=== PATIENT | male | born 1955 | race Caucasian/White ===

== ENCOUNTER → 2020-08-13 15:01 | Outpatient (CLI) | payer OTHER, SELFPAY ==
[2020-08-13] MEDS: COVID-19 VACC #1, MRNA(MOD) 100 MCG/0.5 ML VIAL IM (15:06)
== END ==
PROVIDERS: Visit Provider Internal Medicine
DX: Z23 Encounter for immunization (principal)
CPT/HCPCS: 0011A; 91301

== ENCOUNTER → 2020-09-10 15:13 | Outpatient (CLI) | payer OTHER, SELFPAY ==
[2020-09-10] MEDS: COVID-19 VACC #2, MRNA(MOD) 100 MCG/0.5 ML VIAL IM (15:20)
== END ==
PROVIDERS: Visit Provider Internal Medicine
DX: Z23 Encounter for immunization (principal)
CPT/HCPCS: 0012A; 91301

== ENCOUNTER 2023-07-27 09:08 | Day surgery (SDC) | payer OTHER, MEDICARE, SELFPAY ==
--- NOTE | 2023-07-27 | PATH_ITS ---
[facility] Accession Number: [id number] No. of containers..01 Tissue . 01 Material submitted: . rectum - RECTAL POLYP . 01 Diagnosis: Rectum, Polyp: Hyperplastic polyp. MRV 07/29/2023 1511 Local . 01 Electronically signed: . Jayshree Mello MD, Pathologist NPI- [id number] . 01 Gross description: . RECTAL POLYP: Received in formalin are 2 fragment(s) of pal, soft tissue measuring 0.1 x 0.1 x 0.1 cm to 0.3 x 0.3 x 0.2 cm submitted entirely in 1 cassette(s) /MARBELLA 07/28/2023 2245 Local . 01 Pathologist provided ICD-10: K62.1 . 01 CPT . 499980 Specimen Comment: A courtesy copy of this report has been sent to [phone] Performed at: 01 [facility] [address] [place] [address], [place], [place] [id number] MD Louis Mazariegos MD Phone: [phone]
[2023-07-27] MEDS: LACTATED RINGERS 1,000 ML 42 ML IV (09:24)
[2023-07-27 09:31] VITALS: BP 142/80; PULSE 73; RESP 18; TEMP 36.4; O2SAT 99; BMI 24.3
--- NOTE | 2023-07-27 09:48 | SUR.PREOP ---
Dizziness: Patient verbalizes feeling dizzy after IV initiated. bp 85/55. HR 75. saO2 100%. Place patient with head down and IV fluids given. bp now 101/63 HR 75.
--- NOTE | 2023-07-27 10:13 | P.HP_ITS ---
History of Present Illness History of Present Illness Date Patient Seen: 07/27/23 Chief complaint: Colonoscopy Narrative: 67-year-old man personal history of colonic polyps here for screening colonoscopy. No family history of intestinal malignancy. No abdominal concerns today PFSH Surgical History (Updated 11/16/17 @ 05:00 by SANDIP Carr) Status post colonoscopy Status post tonsillectomy and adenoidectomy Family History (Updated 08/02/14 @ 00:00 by Conversion Provider) Father Age: 90 Hyperlipidemia Mother Alzheimer disease Social History Smoking Status: Never smoker alcohol intake: never Meds Home Medications and Allergies Home Medications Medication Instructions Recorded Confirmed Type Fish Oil (#FISH OIL CONCENTRATE) 1 sgl PO ##0 04/11/11 05/20/18 History CA PANTOTHENATE/FOLIC ACID/VIT 1 tab PO EVERY OTHER DAY ##0 05/26/11 05/20/18 History (MULTIVITAMIN) atorvastatin 20 mg tablet (Lipitor) 30 mg (1.5 x 20 mg) PO HS #135 tabs 03/11/17 07/27/23 Rx Allergies Allergy/AdvReac Type Severity Reaction Status Date / Time shellfish derived Allergy Mild Vomiting Verified 07/27/23 09:28 [SHELLFISH DERIVED] STRAW MUSHROOMS Allergy Mild Uncoded 07/27/23 09:27 Exam Vital Signs (past 8 hours): - 07/27/23 09:31 Temperature 97.5 F L Pulse Rate 73 Respiratory Rate 18 Blood Pressure 142/80 H Pulse Oximetry 99 Oxygen Delivery Method Room Air Oxygen Delivery Method Room Air Narrative Exam Narrative: General adult man alert oriented no acute distress Chest nonlabored respiration Extremities warm well perfused Assessment & Plan Assessment & Plan narrative: The patient requires colorectal screening and colonoscopy is recommended. T echnical details were discussed. Risks, benefits, alternatives explained. Risks including but not limited to myocardial infarction, aspiration, bleeding, pain, missed lesion, incomplete examination, need for further radiographic studies, colonic perforation, and need for major abdominal surgery were discussed. All questions were answered to their satisfaction, and they are in agreement with this plan.
[2023-07-27 10:35] VITALS: BP 93/59; PULSE 73; RESP 18; TEMP 36.1; O2SAT 96
--- NOTE | 2023-07-27 10:36 | P.OP.COLON_ITS ---
Operative Date/Time/Diagnoses Date of procedure: 07/27/23 Time of procedure: 10:36 Pre-op diagnosis: Personal history of colonic polyps Procedure & Clinicians Study performed: Colonoscopy and polypectomy Same procedure as scheduled: Yes Indications: Personal history of colonic polyps Colorectal screening Surgeon: Thony Piedra Procedure Notes Procedure in detail: The history and physical was performed/updated and the patient is ASA class is 2. The procedure was discussed in detail with the patient. Potential risks complications including infection, bleeding, missed diagnosis, perforation, need for surgery, and were explained. Their questions were answered and informed consent was obtained. Patient was brought to the procedure room and placed standard monitoring equipment. The patient's vital signs were monitored continuously throughout the entire procedure. Prior to starting time-out was performed. The patient was placed in the left lateral recumbent position. Procedural sedation was administered by anesthesia. Examination began with a thorough inspection of the perianal area there was no evidence of fissures, fistulae, external hemorrhoids or cutaneous malignancy. The colonoscopy scope was then placed into the anal canal and was advanced to the cecum, which was identified by the ileocecal valve, the appendiceal orifice and the confluence of the taenia. The scope was then slowly withdrawn examining colon thoroughly in all directions, irrigating it of any residual stool. The scope was retroflexed within the rectum The patient tolerated the procedure well. They will be discharged once criteria are met. The prep was of good/excellent quality. The withdrawl time was 7 minutes. FINDINGS * Rectum-5 mm polyp removed with biopsy forceps in entirety Specimen(s): other (Rectal polyp) Impression: Colonic polyp x1 Post-procedure Plan for aftercare: Follow up dependent on pathology findings likely 5 years. Disposition: same day surgery
[2023-07-27 10:40] VITALS: BP 97/60; PULSE 66; RESP 12; O2SAT 98
[2023-07-27 10:45] VITALS: BP 100/54; PULSE 77; RESP 20; TEMP 36.6; O2SAT 100
== END 2023-07-27 10:57 | disposition home or self-care (01) ==
PROVIDERS: PCP Family Medicine; Referring Provider Surgery; Visit Provider Surgery
PROC: 0DJD8ZZ Inspection of Lower Intestinal Tract, Via Natural or Artificial Opening Endoscopic (ICD-10-PCS; CPT 45378; principal; 2023-07-27 10:15)
DX: Z12.11 Encounter for screening for malignant neoplasm of colon (principal); Z86.010 Personal history of colon polyps; K62.1 Rectal polyp
CPT/HCPCS: 45380; J2704

== ENCOUNTER → 2025-02-23 12:14 | Outpatient (CLI) | payer OTHER, MEDICARE, SELFPAY ==
--- NOTE | 2025-02-23 12:17 | DI.RAD.S_ITS ---
PROCEDURE: XR CHEST 2V INDICATIONS: eval for CAP TECHNIQUE: 2 views of the chest were acquired. COMPARISON: None. FINDINGS: Surgical changes and devices: None. Lungs and pleura: Mild streaky bibasilar opacities more pronounced on the left. No dense consolidation.. No pleural effusions or pneumothorax. Mediastinum: Mediastinal contours are normal. Heart size is normal. Bones and chest wall: No suspicious bony abnormalities. Healed fracture deformities of the left lateral chest wall. Soft tissues appear unremarkable. IMPRESSION: No acute cardiopulmonary abnormalities or focal consolidation. Dictated by: Eduardo Wynne M.D. on 02/23/2025 at 13:40 Approved by: Eduardo Wynne M.D. on 02/23/2025 at 13:42
== END ==
PROVIDERS: PCP Family Medicine; Referring Provider Family Medicine; Visit Provider Chiropractor
DX: J18.9 Pneumonia, unspecified organism (principal)
CPT/HCPCS: 71046